=== PATIENT | male | born 1930 | race Caucasian/White ===

== ENCOUNTER → 2018-03-07 | Outpatient (CLI) | payer OTHER ==
[~2018-03-07] MED LIST: ALPR.5 PO; ALPR1; AMLO10 PO; AMLO5 PO; ASPI325 PO; ASPI81CH PO; Alprazolam0.5 MG PO; CARV25 PO; CARV6.25 PO; CELE200 PO; CHOL10002 PO; CIPR500 PO; CLOP75 PO; Catapres0.1 MG PO; DESM.01SO; DOXA1 PO; EZET10 PO; FINA5 PO; FURO20 PO; FURO40 PO; GABA100 PO; HYDACE5 PO; HYDCHL25 PO; HYDR10 PO; HYDR1TAB94 PO; Hydrochloroth12.5 MG PO; KETO200 PO; LISI20 PO; LISI5 PO; LOSA50 PO; METTREX2.5; METTREX2.5 PO; MIRT15 PO; MULTIVITAMIN PO; NEBI10 PO; NITR.4SL SL; OMEP20ER PO; OXYACE5T PO; OXYC10TA19 PO; OXYC1TAB11 PO; PANT40; POTA10T PO; POTASSIUM; Potassium99 MG PO; Prilosec Otc20 MG PO; Prinivil10 MG PO; Pyridium100 MG PO; RXHYD5325 PO; SILENOR3 MG; SILENOR3 MG PO; SPIR50 PO; TORSE20 PO; VERA180ERB PO; VERA240ER PO; VERAPAMIL SR240 MG PO; VITAMIN D 3 PO; ZOLP10 PO; ZOLP5 PO
[2018-03-07 10:04] LABS: Adenovirus F 40/41 Not Detected (NOT DETECT); Astrovirus Not Detected (NOT DETECT); Campylobacter Sp Not Detected (NOT DETECT); Cryptosporidium Not Detected (NOT DETECT); Cyclospora Cayetanensis Not Detected (NOT DETECT); E. Coli O157 Not Detected (NOT DETECT); Entamoeba Histolytica Not Detected (NOT DETECT); Enteroaggregative E. coli-EAEC Not Detected (NOT DETECT); Enteropathogenic E. coli-EPEC Not Detected (NOT DETECT); Enterotoxigenic E. coli-ETEC Not Detected (NOT DETECT); Giardia Lamblia Not Detected (NOT DETECT); Norovirus GI/GII Not Detected (NOT DETECT); Plesiomonas Shigelloides Not Detected (NOT DETECT); Rotavirus A Not Detected (NOT DETECT); Salmonella Sp Not Detected (NOT DETECT); Sapovirus Not Detected (NOT DETECT); Shiga Toxin-prod E. coli-STEC Not Detected (NOT DETECT); Shigella/Enteroin E. coli-EIEC Not Detected (NOT DETECT); Vibrio Cholerae Not Detected (NOT DETECT); Vibrio Sp Not Detected (NOT DETECT); Yersinia Enterocolitica Not Detected (NOT DETECT)
== END ==
LOC: LAB 07:30 → LAB SHORT 07:30 → LAB FUT 03-02 09:10
PROVIDERS: Internal Medicine Gastroenterology
DX: R10.84 Generalized abdominal pain (principal)
CPT/HCPCS: 87507

== ENCOUNTER → 2018-05-08 | Outpatient (CLI) | payer OTHER | END | disposition home or self-care (01) | LOC: LAB 10:15 → LAB SHORT 10:15 | DX: R10.9 Unspecified abdominal pain (principal); R19.4 Change in bowel habit | CPT/HCPCS: 83993 ==

== ENCOUNTER → 2019-10-08 | Outpatient (CLI) | payer OTHER ==
[2019-10-08 18:19] LABS: Campylobacter Sp Not Detected (NOT DETECT)
[2019-10-08 18:20] LABS: Adenovirus F 40/41 Not Detected (NOT DETECT); Astrovirus Not Detected (NOT DETECT); Cryptosporidium Not Detected (NOT DETECT); Cyclospora Cayetanensis Not Detected (NOT DETECT); E. Coli O157 Not Detected (NOT DETECT); Entamoeba Histolytica Not Detected (NOT DETECT); Enteroaggregative E. coli-EAEC Not Detected (NOT DETECT); Enteropathogenic E. coli-EPEC Not Detected (NOT DETECT); Enterotoxigenic E. coli-ETEC Not Detected (NOT DETECT); Giardia Lamblia Not Detected (NOT DETECT); Norovirus GI/GII Not Detected (NOT DETECT); Plesiomonas Shigelloides Not Detected (NOT DETECT); Rotavirus A Not Detected (NOT DETECT); Salmonella Sp Not Detected (NOT DETECT); Sapovirus Not Detected (NOT DETECT); Shiga Toxin-prod E. coli-STEC Not Detected (NOT DETECT); Shigella/Enteroin E. coli-EIEC Not Detected (NOT DETECT); Vibrio Cholerae Not Detected (NOT DETECT); Vibrio Sp Not Detected (NOT DETECT); Yersinia Enterocolitica Not Detected (NOT DETECT)
== END | disposition home or self-care (01) ==
LOC: LAB SHORT 14:20 → LAB 14:20 → LAB FUT 10-01 13:45
PROVIDERS: Internal Medicine Gastroenterology
DX: R10.9 Unspecified abdominal pain (principal); R19.4 Change in bowel habit; R19.7 Diarrhea, unspecified
CPT/HCPCS: 0097U; 83993; 87324

== ENCOUNTER → 2020-04-03 | Outpatient (CLI) | payer MEDICARE | LOC: PLD 11:18 → LAB SHORT 11:18 | DX: D48.5 Neoplasm of uncertain behavior of skin (principal); L57.8 Other skin changes due to chronic exposure to nonionizing radiation; L72.3 Sebaceous cyst; Z88.8 Allergy status to other drugs, medicaments and biological substances | CPT/HCPCS: 88305 ==

== ENCOUNTER → 2020-06-22 | Outpatient (CLI) | payer MEDICARE | END | disposition home or self-care (01) | LOC: LAB SHORT 15:50 | DX: R30.0 Dysuria (principal) | CPT/HCPCS: 87086 ==

== ENCOUNTER → 2020-09-15 | Outpatient (CLI) | payer MEDICARE | END | disposition home or self-care (01) | LOC: LAB SHORT 14:48 → LAB 14:48 | DX: D48.5 Neoplasm of uncertain behavior of skin (principal) | CPT/HCPCS: 88305; 88312 ==